=== PATIENT | female | born 1940 | race Asian ===

== ENCOUNTER 2017-04-02 12:04 | Outpatient (CLI) | payer OTHER, BC | END 2017-04-02 19:42 | disposition home or self-care (01) | LOC: RAD 12:04 | DX: M16.0 Bilateral primary osteoarthritis of hip (principal) ==

== ENCOUNTER 2019-03-23 17:12 | Outpatient (CLI) | payer OTHER, BC ==
[2019-03-23 18:01] LABS: PLATELET COUNT 273 K/uL (152-353)
[2019-03-23 18:04] LABS: POTASSIUM 4.6 mmol/L (3.6-5.2)
== END 2019-03-23 21:46 | disposition home or self-care (01) ==
LOC: LABW 17:12
PROVIDERS: Nurse Practitioner Family
DX: M16.0 Bilateral primary osteoarthritis of hip (principal); M17.12 Unilateral primary osteoarthritis, left knee; M81.0 Age-related osteoporosis without current pathological fracture; Z79.899 Other long term (current) drug therapy
CPT/HCPCS: 36415; 80053; 82330; 83970; 85027; 85651; 86140